=== PATIENT | male | born 1970 | race Asian ===

== ENCOUNTER 2016-12-31 15:43 | Emergency (ER) | payer OTHER ==
[~2016-12-31 15:43] MED LIST: AMLO2.5T PO; FOSRENOL1000 MG PO; LOPRESSOR100 MG PO; MINOXIDIL2.5 MG PO; NIFE30TA PO; OMEPRAZOLE20 M1 OR; OMEPRAZOLE20 M1 PO; PHOSLYRA OR; RENA-VITE OR; SENSIPAR90 MG PO; ZESTRIL40 MG PO; [UNRECOGNIZED DRUG - OTHER] PO
== END 2016-12-31 21:36 | disposition home or self-care (01) ==
LOC: ED 15:43
DX: Z01.30 Encounter for examination of blood pressure without abnormal findings (principal)

== ENCOUNTER 2017-02-06 13:56 | Emergency (ER) | payer OTHER ==
[~2017-02-06] VITALS: Ht 167.6 cm; Wt 108.4 kg
[2017-02-06 18:15] VITALS: BP 190/106; TEMP 98.2
== END 2017-02-06 18:28 | disposition home or self-care (01) ==
LOC: ED 13:56
DX: R09.89 Other specified symptoms and signs involving the circulatory and respiratory systems (principal); I51.7 Cardiomegaly
CPT/HCPCS: 36415; 99283

== ENCOUNTER 2017-02-19 11:18 | Outpatient (CLI) | payer OTHER | END 2017-02-19 19:09 | disposition home or self-care (01) | LOC: LAB 11:18 | DX: N18.6 End stage renal disease (principal) | CPT/HCPCS: 85018 ==

== ENCOUNTER 2017-02-27 10:22 | Emergency (ER) | payer OTHER ==
[~2017-02-27] VITALS: Ht 167.6 cm; Wt 104.3 kg
[2017-02-27 11:37] VITALS: BP 170/98; TEMP 98.3
== END 2017-02-27 11:38 | disposition home or self-care (01) ==
LOC: ED 10:22
DX: K02.9 Dental caries, unspecified (principal); K04.7 Periapical abscess without sinus
CPT/HCPCS: 96372; 99282; J0696

== ENCOUNTER 2017-08-11 12:29 | Outpatient (CLI) | payer OTHER | END 2017-08-11 12:31 | disposition short-term general hospital (02) | LOC: AMB 12:29 | DX: R06.02 Shortness of breath (principal) | CPT/HCPCS: A0425; A0427 ==

== ENCOUNTER 2017-08-25 11:20 | Outpatient (CLI) | payer OTHER | END 2017-08-25 21:17 | disposition home or self-care (01) | LOC: LAB 11:20 | DX: D64.89 Other specified anemias (principal) | CPT/HCPCS: 85018 ==

== ENCOUNTER 2018-01-05 12:50 | Outpatient (CLI) | payer OTHER | END 2018-01-05 22:12 | disposition home or self-care (01) | LOC: LAB 12:50 | DX: D64.89 Other specified anemias (principal) | CPT/HCPCS: 85014; 85018 ==

== ENCOUNTER 2018-01-19 13:50 | Outpatient (CLI) | payer OTHER | END 2018-01-19 21:48 | disposition home or self-care (01) | LOC: LAB 13:50 | DX: D64.89 Other specified anemias (principal) | CPT/HCPCS: 85018 ==

== ENCOUNTER 2018-03-14 12:36 | Emergency (ER) | payer OTHER ==
[~2018-03-14] VITALS: Ht 167.6 cm; Wt 99.8 kg
[2018-03-14 14:39] LABS: PLATELET COUNT 151 K/uL (142-355)
[2018-03-14 16:05] VITALS: BP 151/83; TEMP 98
== END 2018-03-14 16:05 | disposition home or self-care (01) ==
LOC: ED 12:36
PROVIDERS: Family Medicine
DX: M48.061 Spinal stenosis, lumbar region without neurogenic claudication (principal)
CPT/HCPCS: 80048; 85027; 96372; 99283; J1885

== ENCOUNTER 2018-05-06 14:11 | Outpatient (CLI) | payer OTHER | END 2018-05-06 19:20 | disposition home or self-care (01) | LOC: LAB 14:11 | DX: N18.9 Chronic kidney disease, unspecified (principal); D63.1 Anemia in chronic kidney disease | CPT/HCPCS: 85014; 85018 ==

== ENCOUNTER 2018-05-09 11:36 | Emergency (ER) | payer OTHER ==
[~2018-05-09] VITALS: Ht 167.6 cm; Wt 104.3 kg
[2018-05-09 12:15] LABS: PLATELET COUNT 205 K/uL (142-355)
[2018-05-09 12:28] LABS: POTASSIUM 3.4 mmol/L (3.6-5.2)
[2018-05-09 13:11] VITALS: BP 160/90; TEMP 98.4
== END 2018-05-09 13:21 | disposition home or self-care (01) ==
LOC: ED 11:36
DX: M51.86 Other intervertebral disc disorders, lumbar region (principal); M48.061 Spinal stenosis, lumbar region without neurogenic claudication
CPT/HCPCS: 36415; 80053; 85027; 96372; 99283; J2175

== ENCOUNTER 2018-05-30 11:20 | Outpatient (CLI) | payer OTHER ==
[2018-05-30] MEDS ORDERED: TUMS500 MG OR (11:42)
[2018-05-30] MEDS ORDERED: RENVELA800 MG OR (11:42)
[2018-05-30] MEDS ORDERED: MINOXIDIL2.5 MG PO (11:44)
== END 2018-05-30 11:21 | disposition short-term general hospital (02) ==
LOC: AMB 11:20
DX: E86.1 Hypovolemia (principal); R53.1 Weakness
CPT/HCPCS: A0425; A0429

== ENCOUNTER 2018-05-30 11:21 | Observation (INO) | payer OTHER ==
[~2018-05-30] VITALS: Ht 167.6 cm; Wt 104.5 kg
[2018-05-30 11:21] VITALS: BP 158/73; TEMP 99
[2018-05-30] MEDS ORDERED: RENVELA800 MG OR (11:42)
[2018-05-30] MEDS ORDERED: TUMS500 MG OR (11:42)
[2018-05-30] MEDS ORDERED: MINOXIDIL2.5 MG PO (11:44)
[2018-05-30 12:22] LABS: PLATELET COUNT 210 K/uL (142-355)
[2018-05-30 12:25] LABS: POTASSIUM 2.9 mmol/L (3.6-5.2)
[2018-05-30 12:30] VITALS: BP 151/74
[2018-05-30 13:30] VITALS: BP 120/70
[2018-05-30 16:39] VITALS: BP 163/54; TEMP 98.3; Ht 167.6 cm; Wt 104.5 kg
[2018-05-30 19:17] VITALS: BP 117/49; TEMP 99.4
[2018-05-31] VITALS: BP 125/54; TEMP 98.8
[2018-05-31 04:00] VITALS: BP 126/65; TEMP 98.4
[2018-05-31 08:00] VITALS: BP 177/85; TEMP 98.4
[2018-05-31 08:46] LABS: PLATELET COUNT 173 K/uL (142-355)
[2018-05-31 08:59] LABS: POTASSIUM 4.1 mmol/L (3.6-5.2)
== END 2018-05-31 13:05 | disposition home or self-care (01) ==
LOC: ED 11:21 → MED/SURG 14:00
PROC: 30233N1 Transfusion of Nonautologous Red Blood Cells into Peripheral Vein, Percutaneous Approach (ICD-10-PCS; principal; 2018-05-30)
PROC: 30233N1 Transfusion of Nonautologous Red Blood Cells into Peripheral Vein, Percutaneous Approach (ICD-10-PCS; 2018-05-31)
DX: D64.89 Other specified anemias (principal); N18.6 End stage renal disease; Z99.2 Dependence on renal dialysis; R06.81 Apnea, not elsewhere classified; R41.82 Altered mental status, unspecified; E87.6 Hypokalemia
CPT/HCPCS: 36415; 36430; 80053; 85027; 86850; 86900; 86901; 86922; 96360; 96361; 99220; 99284; G0378; J1940; P9016

== ENCOUNTER 2018-06-15 11:16 | Outpatient (CLI) | payer OTHER ==
[~2018-06-15 11:16] MED LIST changes: +RENVELA800 MG OR; +TUMS500 MG OR
== END 2018-06-15 22:13 | disposition home or self-care (01) ==
LOC: LAB 11:16
DX: D64.89 Other specified anemias (principal)
CPT/HCPCS: 85018

== ENCOUNTER 2018-06-16 09:55 | Outpatient (CLI) | payer OTHER | END 2018-06-16 19:18 | disposition home or self-care (01) | LOC: INF 09:55 | DX: D64.89 Other specified anemias (principal) | CPT/HCPCS: 36430; 86850; 86900; 86901; 86922; J1940; P9016 ==

== ENCOUNTER 2018-06-17 11:08 | Outpatient (CLI) | payer OTHER | END 2018-06-17 19:46 | disposition home or self-care (01) | LOC: LAB 11:08 | DX: D64.89 Other specified anemias (principal) | CPT/HCPCS: 82310; 85018 ==

== ENCOUNTER 2018-08-04 11:58 | Emergency (ER) | payer OTHER ==
[~2018-08-04] VITALS: Ht 168.9 cm; Wt 104.3 kg
[2018-08-04 12:00] VITALS: TEMP 99.5
[2018-08-04 12:23] LABS: PLATELET COUNT 200 K/uL (142-355)
[2018-08-04 12:49] LABS: POTASSIUM 4.1 mmol/L (3.6-5.2)
[2018-08-04 15:26] VITALS: BP 145/75
== END 2018-08-04 15:33 | disposition home or self-care (01) ==
LOC: ED 11:58
PROVIDERS: Family Medicine
DX: J06.9 Acute upper respiratory infection, unspecified (principal); K52.89 Other specified noninfective gastroenteritis and colitis
CPT/HCPCS: 36415; 80053; 84484; 85027; 93005; 96365; 99284; J0696

== ENCOUNTER 2018-08-05 10:58 | Outpatient (CLI) | payer OTHER | END 2018-08-05 22:19 | disposition home or self-care (01) | LOC: LAB 10:58 | DX: J06.9 Acute upper respiratory infection, unspecified (principal); K52.89 Other specified noninfective gastroenteritis and colitis; D64.9 Anemia, unspecified | CPT/HCPCS: 85018 ==

== ENCOUNTER 2018-08-10 14:21 | Outpatient (CLI) | payer OTHER | END 2018-08-10 21:06 | disposition home or self-care (01) | LOC: LAB 14:21 | DX: D64.9 Anemia, unspecified (principal) | CPT/HCPCS: 85018 ==

== ENCOUNTER 2018-08-17 14:53 | Outpatient (CLI) | payer OTHER | END 2018-08-17 20:44 | disposition home or self-care (01) | LOC: LAB 14:53 | DX: D64.89 Other specified anemias (principal); D63.1 Anemia in chronic kidney disease | CPT/HCPCS: 85018 ==

== ENCOUNTER 2018-08-24 13:34 | Outpatient (CLI) | payer OTHER | END 2018-08-24 18:52 | disposition home or self-care (01) | LOC: LAB 13:34 | DX: D64.89 Other specified anemias (principal) | CPT/HCPCS: 85018 ==

== ENCOUNTER 2018-09-07 11:19 | Outpatient (CLI) | payer OTHER | END 2018-09-07 20:59 | disposition home or self-care (01) | LOC: LAB 11:19 | DX: D64.9 Anemia, unspecified (principal) | CPT/HCPCS: 85018 ==

== ENCOUNTER 2018-09-21 14:25 | Outpatient (CLI) | payer OTHER | END 2018-09-21 20:34 | disposition home or self-care (01) | LOC: LAB 14:25 | DX: D64.89 Other specified anemias (principal) | CPT/HCPCS: 85018 ==

== ENCOUNTER 2018-10-07 11:31 | Outpatient (CLI) | payer OTHER | END 2018-10-07 19:08 | disposition home or self-care (01) | LOC: LAB 11:31 | DX: D64.9 Anemia, unspecified (principal) | CPT/HCPCS: 85018 ==

== ENCOUNTER 2018-10-12 11:16 | Outpatient (CLI) | payer OTHER | END 2018-10-12 20:18 | disposition home or self-care (01) | LOC: LAB 11:16 | DX: D64.9 Anemia, unspecified (principal) | CPT/HCPCS: 85018 ==

== ENCOUNTER 2018-10-19 14:02 | Outpatient (CLI) | payer OTHER | END 2018-10-19 21:16 | disposition home or self-care (01) | LOC: LAB 14:02 | DX: D64.9 Anemia, unspecified (principal) | CPT/HCPCS: 85014; 85018 ==

== ENCOUNTER 2018-10-30 15:10 | Emergency (ER) | payer OTHER ==
[~2018-10-30] VITALS: Ht 168.9 cm; Wt 104.3 kg
[2018-10-30 15:17] VITALS: BP 199/88; TEMP 98.3
== END 2018-10-30 16:08 | disposition home or self-care (01) ==
LOC: ED 15:10
DX: L03.012 Cellulitis of left finger (principal)
CPT/HCPCS: 99283

== ENCOUNTER 2018-11-18 11:35 | Outpatient (CLI) | payer OTHER | END 2018-11-18 23:23 | disposition home or self-care (01) | LOC: LAB 11:35 | DX: D64.9 Anemia, unspecified (principal) | CPT/HCPCS: 85018 ==

== ENCOUNTER 2018-12-09 11:54 | Outpatient (CLI) | payer OTHER | END 2018-12-09 19:02 | disposition home or self-care (01) | LOC: LAB 11:54 | DX: D64.9 Anemia, unspecified (principal) | CPT/HCPCS: 85014; 85018 ==

== ENCOUNTER 2019-01-02 22:02 | Emergency (ER) | payer OTHER ==
[~2019-01-02] VITALS: Ht 168.9 cm; Wt 104.3 kg
[2019-01-02 22:53] LABS: PLATELET COUNT 187 K/uL (142-355)
[2019-01-02 23:06] LABS: POTASSIUM 3.7 mmol/L (3.6-5.2)
[2019-01-03 01:32] VITALS: BP 183/87; TEMP 98.5
== END 2019-01-03 01:30 | disposition short-term general hospital (02) ==
LOC: ED 22:02
PROVIDERS: Emergency Medicine
DX: R06.09 Other forms of dyspnea (principal); D64.89 Other specified anemias; N19 Unspecified kidney failure
CPT/HCPCS: 80053; 83735; 85027; 93005; 99283

== ENCOUNTER 2019-01-09 14:53 | Outpatient (CLI) | payer OTHER | END 2019-01-09 20:08 | disposition home or self-care (01) | LOC: LAB 14:53 | DX: D64.9 Anemia, unspecified (principal) | CPT/HCPCS: 85014; 85018 ==

== ENCOUNTER 2019-03-18 11:17 | Outpatient (CLI) | payer OTHER | END 2019-03-18 19:46 | disposition home or self-care (01) | LOC: LAB 11:17 | DX: D64.89 Other specified anemias (principal) | CPT/HCPCS: 85014; 85018 ==

== ENCOUNTER 2019-04-05 11:55 | Outpatient (CLI) | payer OTHER | END 2019-04-05 20:06 | disposition home or self-care (01) | LOC: LABW 11:55 | DX: D64.89 Other specified anemias (principal) | CPT/HCPCS: 85018 ==

== ENCOUNTER 2019-04-06 14:20 | Outpatient (CLI) | payer OTHER | END 2019-04-06 20:49 | disposition home or self-care (01) | LOC: LAB 14:20 | DX: D64.89 Other specified anemias (principal) | CPT/HCPCS: 85018 ==

== ENCOUNTER 2019-04-26 12:36 | Outpatient (CLI) | payer OTHER | END 2019-04-26 23:45 | disposition home or self-care (01) | LOC: LAB 12:36 | DX: D64.89 Other specified anemias (principal) | CPT/HCPCS: 85018 ==

== ENCOUNTER 2019-05-03 04:19 | Outpatient (CLI) | payer OTHER | END 2019-05-03 04:20 | disposition short-term general hospital (02) | LOC: AMB 04:19 | DX: R06.02 Shortness of breath (principal); R05 Cough | CPT/HCPCS: A0425; A0427 ==

== ENCOUNTER 2019-05-03 04:24 | Emergency (ER) | payer OTHER ==
[~2019-05-03] VITALS: Ht 168.9 cm; Wt 104.3 kg
[2019-05-03 04:24] VITALS: TEMP 97.7
[2019-05-03 04:39] LABS: PLATELET COUNT 185 K/uL (142-355)
[2019-05-03 04:59] LABS: POTASSIUM 4.2 mmol/L (3.6-5.2)
[2019-05-03 11:32] VITALS: BP 179/89
== END 2019-05-03 12:28 | disposition short-term general hospital (02) ==
LOC: ED 04:24
PROVIDERS: Internal Medicine
DX: D64.89 Other specified anemias (principal); N18.6 End stage renal disease; Z99.2 Dependence on renal dialysis
CPT/HCPCS: 80053; 82550; 84484; 85027; 93005; 96374; 99284; J0360

== ENCOUNTER 2019-05-03 12:30 | Outpatient (CLI) | payer OTHER | END 2019-05-03 13:43 | disposition short-term general hospital (02) | LOC: AMB 12:30 | DX: D64.89 Other specified anemias (principal); N18.6 End stage renal disease | CPT/HCPCS: A0425; A0427 ==

== ENCOUNTER 2019-06-07 13:33 | Outpatient (CLI) | payer OTHER | END 2019-06-07 23:41 | disposition home or self-care (01) | LOC: LAB 13:33 | DX: D64.9 Anemia, unspecified (principal) | CPT/HCPCS: 85014; 85018 ==

== ENCOUNTER 2019-07-26 13:13 | Outpatient (CLI) | payer OTHER | END 2019-07-26 20:10 | disposition home or self-care (01) | LOC: LAB 13:13 | DX: D64.89 Other specified anemias (principal) | CPT/HCPCS: 85018 ==

== ENCOUNTER 2019-08-16 15:10 | Outpatient (CLI) | payer OTHER | END 2019-08-16 23:40 | disposition home or self-care (01) | LOC: LAB 15:10 | DX: D64.89 Other specified anemias (principal); R73.09 Other abnormal glucose | CPT/HCPCS: 83036 ==

== ENCOUNTER 2019-08-18 17:15 | Outpatient (CLI) | payer OTHER | END 2019-08-18 22:17 | disposition home or self-care (01) | LOC: LAB 17:15 | DX: D64.89 Other specified anemias (principal) | CPT/HCPCS: 85014; 85018 ==

== ENCOUNTER 2019-08-25 14:01 | Outpatient (CLI) | payer OTHER | END 2019-08-25 19:48 | disposition home or self-care (01) | LOC: LAB 14:01 | DX: D64.89 Other specified anemias (principal) | CPT/HCPCS: 85014; 85018 ==

== ENCOUNTER 2019-09-01 15:11 | Outpatient (CLI) | payer OTHER | END 2019-09-01 21:32 | disposition home or self-care (01) | LOC: LAB 15:11 | DX: D64.89 Other specified anemias (principal) | CPT/HCPCS: 85018 ==

== ENCOUNTER 2020-01-24 16:25 | Outpatient (CLI) | payer OTHER | END 2020-01-24 21:14 | disposition home or self-care (01) | LOC: LAB 16:25 | DX: D64.89 Other specified anemias (principal) | CPT/HCPCS: 85018 ==

== ENCOUNTER 2020-03-06 15:47 | Outpatient (CLI) | payer OTHER | END 2020-03-06 22:58 | disposition home or self-care (01) | LOC: LAB 15:47 | DX: D64.89 Other specified anemias (principal) | CPT/HCPCS: 85018 ==

== ENCOUNTER 2020-03-13 12:34 | Outpatient (CLI) | payer OTHER | END 2020-03-13 21:37 | disposition home or self-care (01) | LOC: LAB 12:34 | DX: D64.89 Other specified anemias (principal) | CPT/HCPCS: 85018 ==

== ENCOUNTER 2020-05-29 14:10 | Outpatient (CLI) | payer OTHER | END 2020-05-29 20:28 | disposition home or self-care (01) | LOC: LAB 14:10 | DX: D64.89 Other specified anemias (principal) | CPT/HCPCS: 85018 ==

== ENCOUNTER 2020-06-19 15:33 | Outpatient (CLI) | payer OTHER | END 2020-06-19 19:48 | disposition home or self-care (01) | LOC: LAB 15:33 | DX: D64.89 Other specified anemias (principal) | CPT/HCPCS: 85018 ==

== ENCOUNTER 2020-09-20 13:19 | Outpatient (CLI) | payer OTHER | END 2020-09-20 19:12 | disposition home or self-care (01) | LOC: LAB 13:19 | DX: D64.89 Other specified anemias (principal) | CPT/HCPCS: 85014; 85018 ==

== ENCOUNTER 2020-10-21 11:37 | Emergency (ER) | payer OTHER ==
[~2020-10-21] VITALS: Ht 168.9 cm; Wt 104.3 kg
[2020-10-21 11:51] VITALS: TEMP 97.4
[2020-10-21 13:09] LABS: PLATELET COUNT 173 K/uL (142-355)
[2020-10-21 14:00] VITALS: BP 166/81
== END 2020-10-21 14:03 | disposition home or self-care (01) ==
LOC: ED 11:37
PROVIDERS: Emergency Medicine Emergency Medical Services
DX: S00.512A Abrasion of oral cavity, initial encounter (principal); T17.228A Food in pharynx causing other injury, initial encounter; X58.XXXA Exposure to other specified factors, initial encounter; Y92.89 Other specified places as the place of occurrence of the external cause
CPT/HCPCS: 36415; 85027; 85610; 87040; 87077; 87185; 87186; 87205; 90471; 90715; 96365; 96375; 99284; J0696; J1100

== ENCOUNTER 2020-11-11 15:23 | Outpatient (CLI) | payer OTHER | END 2020-11-11 22:05 | disposition home or self-care (01) | LOC: LAB 15:23 | PROVIDERS: ATTEND Physician Assistant Medical | DX: D64.89 Other specified anemias (principal) | CPT/HCPCS: 85014; 85018 ==

== ENCOUNTER 2021-01-28 12:34 | Emergency (ER) | payer OTHER ==
[~2021-01-28] VITALS: Ht 168.9 cm; Wt 102.1 kg
[2021-01-28 12:45] VITALS: TEMP 98.2
[2021-01-28 15:00] VITALS: BP 169/85
== END 2021-01-28 15:00 | disposition home or self-care (01) ==
LOC: ED 12:34
DX: K40.20 Bilateral inguinal hernia, without obstruction or gangrene, not specified as recurrent (principal)
CPT/HCPCS: 99282

== ENCOUNTER 2021-02-20 09:48 | Emergency (ER) | payer OTHER ==
[~2021-02-20] VITALS: Ht 167.6 cm; Wt 99.3 kg
[2021-02-20 09:48] VITALS: TEMP 97.9
[2021-02-20 10:27] LABS: PLATELET COUNT 180 K/uL (142-355)
[2021-02-20 10:31] LABS: POTASSIUM 3.2 mmol/L (3.6-5.2)
[2021-02-20 10:38] LABS: PARTIAL THROMBOPLASTIN TIME 24.8 SECONDS (24.5-33.6)
[2021-02-20 13:15] VITALS: BP 173/90
== END 2021-02-20 13:15 | disposition short-term general hospital (02) ==
LOC: ED 09:52
PROVIDERS: Hospitalist
DX: K40.01 Bilateral inguinal hernia, with obstruction, without gangrene, recurrent (principal); N18.6 End stage renal disease; Z99.2 Dependence on renal dialysis; D64.89 Other specified anemias
CPT/HCPCS: 80053; 83690; 85027; 85610; 85730; 96374; 96375; 99284; J1170; J1885; J2270; J2405

== ENCOUNTER 2021-08-15 14:41 | Outpatient (CLI) | payer OTHER | END 2021-08-15 19:08 | disposition home or self-care (01) | LOC: LAB 14:41 | PROVIDERS: ATTEND Physician Assistant Medical | DX: D64.89 Other specified anemias (principal) | CPT/HCPCS: 85014; 85018 ==

== ENCOUNTER 2022-10-02 13:24 | Outpatient (CLI) | payer OTHER | END 2022-10-02 19:00 | disposition home or self-care (01) | LOC: LAB 13:24 | PROVIDERS: ATTEND Physician Assistant Medical | DX: D64.89 Other specified anemias (principal) | CPT/HCPCS: 85018 ==